=== PATIENT | female | born 1985 | race Caucasian/White ===

== ENCOUNTER 2016-06-27 05:46 | Emergency (ER) | payer OTHER ==
[2016-06-27] MEDS ORDERED: CLINDAMYCIN HCL 150 MG CAPSULE PO ONE (06:34)
[2016-06-27] MEDS ORDERED: BUPIVACAINE HCL 0.5%-EPI 1:200000 INJ/PF 30 ML VIAL INJ ONE (06:34)
--- NOTE | 2016-06-27 06:38 | ER Document Report ---
ED General - General Chief Complaint: Toothache Stated Complaint: TOOTH PAIN TRAVEL OUTSIDE OF THE [place] IN LAST 30 DAYS: No - HPI Patient complains to provider of: dental pain Notes: Patient states she checked her tooth was not bleeding can be. Patient states she is start Motrin Tylenol with no pain relief. Patient denies any other injuries. Patient denies any other medical problems. Patient states she is allergic to penicillin. Patient states she does have a dentist and plans on following up very closely. - Related Data Allergies/Adverse Reactions: Penicillins Allergy (Verified 06/27/16 05:50) Past Medical History - General Last Menstrual Period: na - Social History Smoking Status: Never Smoker Cigarette use (# per day): No Chew tobacco use (# tins/day): No Frequency of alcohol use: Rare Drug Abuse: None Family History: Reviewed & Not Pertinent Renal/ Medical History: Denies: Hx Peritoneal Dialysis Past Surgical History: Reports: Hx Section - X2, Hx Cholecystectomy, Hx Hysterectomy, Hx Orthopedic Surgery - Left Knee - Immunizations Hx Diphtheria, Pertussis, Tetanus Vaccination: Yes Review of Systems - Review of Systems Constitutional: No symptoms reported EENT: Other - Dental pain Cardiovascular: No symptoms reported Respiratory: No symptoms reported Gastrointestinal: No symptoms reported Genitourinary: No symptoms reported Female Genitourinary: No symptoms reported Musculoskeletal: No symptoms reported Skin: No symptoms reported Hematologic/Lymphatic: No symptoms reported Neurological/Psychological: No symptoms reported -: Yes All other systems reviewed and negative Physical Exam - Vital signs Vitals: Temp Pulse Resp BP Pulse Ox 98.6 F 89 18 137/85 H 99 06/27/16 05:51 06/27/16 05:51 06/27/16 05:51 06/27/16 05:51 06/27/16 05:51 Interpretation: Normal - General General appearance: Appears well, Alert - HEENT Head: Normocephalic, Atraumatic Eyes: Normal Conjunctiva: Normal Cornea: Normal Extraocular movements intact: Yes Eyelashes: Normal Pupils: PERRL Teeth diagram: 1 - Patient with slight dental injury Agosto type I of tooth #30 - Respiratory Respiratory status: No respiratory distress Chest status: Nontender Breath sounds: Normal Chest palpation: Normal - Cardiovascular Rhythm: Regular Heart sounds: Normal auscultation Murmur: No - Abdominal Inspection: Normal Distension: No distension Bowel sounds: Normal Tenderness: Nontender Organomegaly: No organomegaly - Back Back: Normal, Nontender - Extremities General upper extremity: Normal inspection, Nontender, Normal color, Normal ROM , Normal temperature General lower extremity: Normal inspection, Nontender, Normal color, Normal ROM , Normal temperature, Normal weight bearing. No: Raman's sign - Neurological Neuro grossly intact: Yes Cognition: Normal Orientation: AAOx4 Patrizia Coma Scale Eye Opening: Spontaneous Patrizia Coma Scale Verbal: Oriented [place] Coma Scale Motor: Obeys Commands Patrizia Coma Scale Total: 15 Speech: Normal Motor strength normal: LUE, RUE, LLE, RLE Sensory: Normal - Psychological Associated symptoms: Normal affect, Normal mood - Skin Skin Temperature: Warm Skin Moisture: Dry Skin Color: Normal Course - Re-evaluation Re-evalutation: 06/27/16 06:52 Dental block was performed. Patient received good analgesia. Will treat patient with clindamycin Motrin Tylenol and Ultram. Patient's follow-up with dentist. - Vital Signs Vital signs: Temp Pulse Resp BP Pulse Ox 97.8 F 72 18 135/82 H 99 06/27/16 07:14 06/27/16 07:14 06/27/16 07:14 06/27/16 07:14 06/27/16 07:14 Procedures - Additional Procedures dental block Notes: 06/27/16 06:52 Patient's underwent a dental block. Inferior alveolar nerve block was performed using 0.5% Sensorcaine with epi. Approximately 2 mL of medication were instilled for block. Patient tolerated well no complications. Discharge - Discharge Clinical Impression: Pain, dental Fractured tooth Qualifiers: Encounter type: initial encounter Fracture type: closed Qualified Code(s): S02.5XXA - Fracture of tooth (traumatic), initial encounter for closed fracture Condition: Good Disposition: HOME, SELF-CARE Instructions: [facility], Clindamycin ([facility]), Oral Narcotic Medication ([facility]), Toothache ([facility]) Additional Instructions: Take medication as prescribed. Please follow-up with your dentist for further evaluation of her tooth. Return to the ER as needed Prescriptions: Ibuprofen [Motrin 600 mg Tablet] 600 mg PO Q8HP PRN #90 tablet PRN Reason: Clindamycin HCl [Cleocin 150 mg Capsule] 150 mg PO Q6 7 Days Tramadol HCl [Ultram 50 mg Tablet] 50 mg PO ASDIR PRN #20 tablet PRN Reason: Forms: Return to Work
[2016-06-27 07:15] VITALS: BP 135/82
== END 2016-06-27 07:15 | disposition home or self-care (01) ==
LOC: ER 05:46
PROC: 3E0T3BZ Introduction of Anesthetic Agent into Peripheral Nerves and Plexi, Percutaneous Approach (ICD-10-PCS; principal; 2016-06-27)
DX: S02.5XXA Fracture of tooth (traumatic), initial encounter for closed fracture (principal); X58.XXXA Exposure to other specified factors, initial encounter; K08.89 Other specified disorders of teeth and supporting structures; Z88.0 Allergy status to penicillin
CPT/HCPCS: 99282; 64400; J3490

== ENCOUNTER 2017-01-16 17:40 | Emergency (ER) | payer SELFPAY ==
[2017-01-16] MEDS ORDERED: KETOROLAC TROMETHAMINE INJ/PF 30 MG/1 ML SDV IV ONE (19:30)
[2017-01-16] MEDS ORDERED: NORMAL SALINE 1000 ML 1,000 ML IV ONE (19:30)
--- NOTE | 2017-01-16 19:33 | ER Document Report ---
ED General - General Chief Complaint: Flu Symptoms Stated Complaint: FLU LIKE SYMPTOMS Time Seen by Provider: 01/16/17 19:13 Notes: Patient is a 31-year-old female comes emergency department for chief complaint of feeling weak, fever/chills, body aches, and she also has a non-productive cough and some mild congestion. She states she keeps getting lightheaded spells today, but she denies syncope. She takes no daily medications. Past medical history of hysterectomy and cholecystectomy. TRAVEL OUTSIDE OF THE [place] IN LAST 30 DAYS: No - Related Data Allergies/Adverse Reactions: Penicillins Allergy (Verified 06/27/16 05:50) Past Medical History - General Information source: Patient - Social History Smoking Status: Never Smoker Frequency of alcohol use: None Drug Abuse: None Lives with: Family Family History: Reviewed & Not Pertinent - Medical History Medical History: Negative Renal/ Medical History: Denies: Hx Peritoneal Dialysis Past Surgical History: Reports: Hx Section - X2, Hx Cholecystectomy, Hx Hysterectomy, Hx Orthopedic Surgery - Left Knee - Immunizations Hx Diphtheria, Pertussis, Tetanus Vaccination: Yes Review of Systems - Review of Systems Constitutional: See HPI EENT: See HPI Cardiovascular: See HPI Respiratory: See HPI Gastrointestinal: No symptoms reported Genitourinary: No symptoms reported Female Genitourinary: No symptoms reported Musculoskeletal: See HPI Skin: No symptoms reported Hematologic/Lymphatic: No symptoms reported Neurological/Psychological: No symptoms reported Physical Exam - Vital signs Vitals: Temp Pulse Resp BP Pulse Ox 99 F 112 H 16 153/83 H 96 01/16/17 18:05 01/16/17 18:05 01/16/17 18:05 01/16/17 18:05 01/16/17 18:05 Interpretation: Normal - General General appearance: Appears well, Alert In distress: None - HEENT Head: Normocephalic, Atraumatic Eyes: Normal Conjunctiva: Normal Extraocular movements intact: Yes Eyelashes: Normal Pupils: PERRL Ears: Normal External canal: Normal Tympanic membrane: Normal Sinus: Normal Nasal: Clear rhinorrhea Mouth/Lips: Normal Mucous membranes: Normal Pharynx: Normal Neck: Normal - Respiratory Respiratory status: No respiratory distress. No: Respiratory distress, Labored , Tachypnea Chest status: Nontender Breath sounds: Nonproductive cough - Intermittent mild nonproductive cough. No : Decreased air movement, Wheezing Chest palpation: Normal - Cardiovascular Rhythm: Regular, Tachycardia Heart sounds: Normal auscultation, S1 appreciated, S2 appreciated Murmur: No - Abdominal Inspection: Normal Distension: No distension Bowel sounds: Normal Tenderness: Nontender. No: Tender, Guarding Organomegaly: No organomegaly - Back Back: Normal, Nontender. 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 Workup performed because of her complaints of feeling abnormally weak however this was unremarkable including CBC, chemistry, chest x-ray. Influenza negative. Suspect patient has a virus, no evidence of other abnormality, no nuchal rigidity, headache, clear lungs, soft abdomen. Initially mildly tachycardic, resolved after IV fluids, symptoms of discomfort resolved after Toradol. Discussed with patient, she requests time off from work but otherwise will be treated symptomatically, discussed follow-up and return precautions, patient states understanding and agreement. - Vital Signs Vital signs: Temp Pulse Resp BP Pulse Ox 98.3 F 75 18 129/85 H 97 01/16/17 21:56 01/16/17 21:56 01/16/17 21:56 01/16/17 21:56 01/16/17 21:56 - Laboratory Result Diagrams: 01/16/17 19:45 01/16/17 20:30 Laboratory results interpreted by me: 01/16/17 20:30 Total Protein 5.9 L Discharge - Discharge Clinical Impression: Weakness, Body aches, Cough, Sinus congestion Condition: Stable Disposition: HOME, SELF-CARE Additional Instructions: Your chest x-ray and workup did not show any concerning abnormalities. He would likely have a viral illness which should resolve with time. Rest, drink plenty of fluids, take Tylenol or ibuprofen for fever and body aches, take Tessalon as prescribed if needed for cough, take Kathrine to help reduce drainage and congestion. Follow-up with primary care. Return to the emergency department for any concerning or worsening symptoms including difficulty breathing, vomiting, or any other concerning symptoms. Prescriptions: Benzonatate [Tessalon Perle 100 mg Capsule] 100 mg PO Q8HP PRN #20 cap PRN Reason: Fexofenadine HCl [Kathrine Allergy] 180 mg PO DAILY #30 tablet Forms: Return to Work
--- NOTE | 2017-01-16 20:14 | RADIOLOGY REPORT (SQ) ---
EXAM DESCRIPTION: CHEST PA/LAT COMPLETED DATE/TIME: 01/16/2017 8:02 pm REASON FOR STUDY: fevers, cough COMPARISON: None. EXAM PARAMETERS: NUMBER OF VIEWS: two views TECHNIQUE: Digital Frontal and Lateral radiographic views of the chest acquired. RADIATION DOSE: NA LIMITATIONS: none FINDINGS: LUNGS AND PLEURA: No opacities, masses or pneumothorax. No pleural effusion. MEDIASTINUM AND HILAR STRUCTURES: No masses or contour abnormalities. HEART AND VASCULAR STRUCTURES: Heart normal size. No evidence for failure. BONES: No acute findings. HARDWARE: None in the chest. OTHER: No other significant finding. IMPRESSION: NO SIGNIFICANT RADIOGRAPHIC FINDING IN THE CHEST. TECHNICAL DOCUMENTATION: JOB ID: [id number] [employer]- All Rights Reserved
[2017-01-16 20:15] LABS: ABSOLUTE BASOPHILS # (AUTO) 0.1 10^3/uL (0.0-0.2); ABSOLUTE EOSINOPHILS # (AUTO) 0.1 10^3/uL (0.0-0.6); ABSOLUTE LYMPHOCYTES (AUTO) 1.8 10^3/uL (0.5-4.7); ABSOLUTE MONOCYTES (AUTO) 0.5 10^3/uL (0.1-1.4); ABSOLUTE NEUT (AUTO) 6.4 10^3/uL (1.7-8.2); BASOPHILS % (AUTO) 0.6 % (0-2); HEMOGLOBIN 13.5 g/dL (12.0-15.5); HGB HCT DIFFERENCE 1.5; MEAN CORPUSCULAR HEMOGLOBIN 31.1 pg (27.0-33.4); MEAN CORPUSCULAR HGB CONC 34.6 g/dL (32.0-36.0); MEAN CORPUSCULAR VOLUME 90 fl (80-97); MONOCYTES % (AUTO) 5.9 % (3-13); RED BLOOD COUNT 4.35 10^6/uL (3.72-5.28); RED CELL DISTRIBUTION WIDTH 13.4 % (11.5-14.0); SEGMENTED NEUTROPHILS % (AUTO) 72.5 % (42-78); WHITE BLOOD COUNT 8.9 10^3/uL (4.0-10.5)
[2017-01-16 21:08] LABS: ALANINE AMINOTRANSFERASE 38 U/L (9-52); ALBUMIN 3.6 g/dL (3.5-5.0); ALKALINE PHOSPHATASE 52 U/L (38-126); ANION GAP 11 (5-19); ASPARTATE AMINO TRANSFERASE 20 U/L (14-36); BILIRUBIN,DIRECT 0.3 mg/dL (0.0-0.4); BILIRUBIN,TOTAL 1.3 mg/dL (0.2-1.3); BLOOD UREA NITROGEN 12 mg/dL (7-20); CALCIUM 8.5 mg/dL (8.4-10.2); CARBON DIOXIDE 24 mmol/L (22-30); CHLORIDE 107 mmol/L (98-107); CREATININE RESULT 0.72 mg/dL (0.52-1.25); GLUCOSE 84 mg/dL (75-110); POTASSIUM 3.9 mmol/L (3.6-5.0); SODIUM 142.1 mmol/L (137-145); TOTAL PROTEIN 5.9 g/dL (6.3-8.2)
[2017-01-16 21:58] VITALS: BP 129/85
== END 2017-01-16 21:57 | disposition home or self-care (01) ==
LOC: ER 17:40
DX: R53.1 Weakness (principal); M79.1 Myalgia; R05 Cough; R09.81 Nasal congestion
CPT/HCPCS: 99283; 96361; 96374; 36415; 85025; 80053; 87804; 71020; J1885; J7030

== ENCOUNTER 2018-01-16 17:41 | Emergency (ER) | payer SELFPAY ==
[2018-01-16] MEDS ORDERED: IBUPROFEN 800 MG TABLET PO ONE (18:56)
--- NOTE | 2018-01-16 19:28 | ER Document Report ---
HPI - HPI Patient complains to provider of: left knee pain Time Seen by Provider: 01/16/18 18:46 Pain Level: 3 Context: Patient is a 32-year-old female presenting to the emergency department complaining of left knee pain. Patient states she is getting into the bathtub when she slipped and fell hitting the anterior aspect of her left knee on the top. Denies hitting her head, neck, back or pain in any. States she has continued pain in the left knee throughout the day despite taking over-the- counter NSAIDs. States she presents to the emergency room for x-rays. Past medical history Past medical history: None Medications: None Allergies: Penicillin Surgical history: 2 sections, partial hysterectomy, cholecystectomy Patient denies cigarette smoking, denies illicit drug use, denies EtOH use. - CONSTITUTIONAL Constitutional: DENIES: Fever, Chills - EENT EENT: DENIES: Sore Throat, Ear Pain, Eye problems - NEURO Neurology: DENIES: Headache, Weakness, Vision blurred, Dizzinesss / Vertigo - CARDIOVASCULAR Cardiovascular: DENIES: Chest pain - RESPIRATORY Respiratory: DENIES: Trouble Breathing, Coughing - GASTROINTESTINAL Gastrointestinal: DENIES: Abdominal Pain, Black / Bloody Stools - URINARY Urinary: DENIES: Dysuria, Urgency, Frequency - REPRODUCTIVE Reproductive: DENIES: : - MUSCULOSKELETAL Musculoskeletal: REPORTS: Extremity pain - left knee Past Medical History - General Information source: Patient - Social History Smoking Status: Never Smoker Chew tobacco use (# tins/day): No Frequency of alcohol use: None Drug Abuse: None Family History: Reviewed & Not Pertinent Patient has suicidal ideation: No Patient has homicidal ideation: No Renal/ Medical History: Denies: Hx Peritoneal Dialysis Past Surgical History: Reports: Hx Section - X2, Hx Cholecystectomy, Hx Hysterectomy, Hx Orthopedic Surgery - Left Knee - Immunizations Hx Diphtheria, Pertussis, Tetanus Vaccination: Yes Vertical Provider Document - CONSTITUTIONAL Agree With Documented VS: Yes Notes: GENERAL: Alert, interacts well. No acute distress. HEAD: Normocephalic, atraumatic. EYES: Pupils equal, round, and reactive to light. Extraocular movements intact. ENT: Oral mucosa moist, tongue midline. NECK: Full range of motion. Supple. Trachea midline. LUNGS: Clear to auscultation bilaterally, no wheezes, rales, or rhonchi. No respiratory distress. HEART: Regular rate and rhythm. No murmur ABDOMEN: Soft, non-tender. Non-distended. Bowel sounds present in all 4 quadrants. EXTREMITIES: Moves all 4 extremities spontaneously. normal radial and dorsalis pedis pulses bilaterally. No cyanosis. Swelling noted left anterior knee, no ecchymosis or erythema noted. Negative anterior draw, not able to establish valgus or varus due to pain. PMS + distal left extremity. BACK: no cervical, thoracic, lumbar midline tenderness. No saddle anesthesia, normal distal neurovascular exam. NEUROLOGICAL: Alert and oriented x3. Normal speech. cranial nerves II through XII grossly intact. PSYCH: Normal affect, normal mood. SKIN: Warm, dry, normal turgor. - INFECTION CONTROL TRAVEL OUTSIDE OF THE [place] IN LAST 30 DAYS: No Course - Re-evaluation Re-evalutation: 01/16/18 20:28 X-ray revealed no signs of fracture. Discussed at length with patient at bedside need to follow-up with orthopedics and primary care provider. Knee immobilizer and crutches will be given. 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 - Vital Signs Vital signs: Temp Pulse Resp BP Pulse Ox 98.8 F 88 20 149/91 H 97 01/16/18 17:55 01/16/18 17:55 01/16/18 17:55 01/16/18 17:55 01/16/18 17:55 Discharge - Discharge Clinical Impression: Knee injury Qualifiers: Encounter type: initial encounter Laterality: left Qualified Code(s): S89.92XA - Unspecified injury of left lower leg, initial encounter Condition: Stable Disposition: HOME, SELF-CARE Instructions: Use of Crutches ([facility]), Ice & Elevation ([facility]), Knee Immobilizing Splint ([facility]), Sprained Knee ([facility]) Additional Instructions: As you we discussed you have been seen and treated in the emergency room for knee pain. Please use knee immobilizer and crutches as needed. Please follow- up with orthopedics at your earliest convenience. Please make an appointment with your primary care provider. Please return to the emergency room for any other concerning symptom Referrals: ROSIE WOODWARD FNP-C [Primary Care Provider] - Follow up as needed NEMO BILLS MD [ACTIVE STAFF] - Follow up as needed
--- NOTE | 2018-01-16 20:22 | RADIOLOGY REPORT (SQ) ---
EXAM DESCRIPTION: KNEE LEFT 4 VIEW COMPLETED DATE/TIME: 01/16/2018 8:12 pm REASON FOR STUDY: fall hysterectomy. COMPARISON: None. NUMBER OF VIEWS: Four views. TECHNIQUE: AP, lateral, and both oblique radiographic images acquired of the left knee. LIMITATIONS: None. FINDINGS: MINERALIZATION: Normal. BONES: No acute fracture or dislocation. No worrisome bone lesions. JOINT: No effusion. SOFT TISSUES: No soft tissue swelling. No radio-opaque foreign body. OTHER: No other significant finding. IMPRESSION: NEGATIVE STUDY OF THE LEFT KNEE. NO RADIOGRAPHIC EVIDENCE OF ACUTE INJURY. TECHNICAL DOCUMENTATION: JOB ID: [id number] [employer]- All Rights Reserved Reading location - IP/workstation name: [email or web address]
[2018-01-16 21:05] VITALS: BP 134/79
== END 2018-01-16 21:05 | disposition home or self-care (01) ==
LOC: ER 17:41
DX: S89.92XA Unspecified injury of left lower leg, initial encounter (principal); W18.2XXA Fall in (into) shower or empty bathtub, initial encounter; Y92.002 Bathroom of unspecified non-institutional (private) residence as the place of occurrence of the external cause; Z88.0 Allergy status to penicillin; Z90.49 Acquired absence of other specified parts of digestive tract; Z90.710 Acquired absence of both cervix and uterus
CPT/HCPCS: 99283; 73564; L1830

== ENCOUNTER 2018-10-06 00:58 | Emergency (ER) | payer SELFPAY ==
[2018-10-06] MEDS ORDERED: NORMAL SALINE 1000 ML 1,000 ML IV ONE (02:12)
[2018-10-06] MEDS ORDERED: KETOROLAC TROMETHAMINE INJ/PF 30 MG/1 ML SDV IV ONE (02:12)
[2018-10-06 02:43] LABS: APPEARANCE,URINE SLIGHTLY-CLOUDY; BILIRUBIN,URINE NEGATIVE (NEGATIVE); COLOR,URINE YELLOW; GLUCOSE, URINE NEGATIVE (NEGATIVE); KETONES,URINE NEGATIVE (NEGATIVE); LEUKOCYTE ESTERASE,URINE NEGATIVE (NEGATIVE); NITRITE,URINE NEGATIVE (NEGATIVE); PROTEIN,URINE NEGATIVE (NEGATIVE); URINE SPECIFIC GRAVITY 1.013; UROBILINOGEN,URINE NEGATIVE mg/dL (<2.0)
[2018-10-06 02:44] LABS: ABSOLUTE EOSINOPHILS # (AUTO) 0.1 10^3/uL (0.0-0.6); ABSOLUTE LYMPHOCYTES (AUTO) 1.3 10^3/uL (0.5-4.7); ABSOLUTE MONOCYTES (AUTO) 0.8 10^3/uL (0.1-1.4); ABSOLUTE NEUT (AUTO) 4.8 10^3/uL (1.7-8.2); BASOPHILS % (AUTO) 0.6 % (0-2); EOSINOPHILS % (AUTO) 1.5 % (0-6); HEMATOCRIT 38.1 % (36.0-47.0); LYMPHOCYTES % (AUTO) 18.8 % (13-45); MEAN CORPUSCULAR HEMOGLOBIN 31.2 pg (27.0-33.4); MEAN CORPUSCULAR HGB CONC 34.3 g/dL (32.0-36.0); MEAN CORPUSCULAR VOLUME 91 fl (80-97); MONOCYTES % (AUTO) 11.2 % (3-13); PLATELET COUNT 173 10^3/uL (150-450); RED BLOOD COUNT 4.19 10^6/uL (3.72-5.28); RED CELL DISTRIBUTION WIDTH 13.2 % (11.5-14.0); SEGMENTED NEUTROPHILS % (AUTO) 67.9 % (42-78); TOTAL CELLS COUNTED % (AUTO) 100 %; WHITE BLOOD COUNT 7.1 10^3/uL (4.0-10.5)
[2018-10-06 02:54] LABS: ALKALINE PHOSPHATASE 64 U/L (38-126); ANION GAP 9 (5-19); ASPARTATE AMINO TRANSFERASE 21 U/L (14-36); BILIRUBIN,DIRECT 0.2 mg/dL (0.0-0.4); BILIRUBIN,TOTAL 0.4 mg/dL (0.2-1.3); BLOOD UREA NITROGEN 14 mg/dL (7-20); CALCIUM 9.4 mg/dL (8.4-10.2); CARBON DIOXIDE 25 mmol/L (22-30); CHLORIDE 105 mmol/L (98-107); GLUCOSE 97 mg/dL (75-110); POTASSIUM 4.1 mmol/L (3.6-5.0); TOTAL PROTEIN 6.6 g/dL (6.3-8.2)
--- NOTE | 2018-10-06 03:57 | RADIOLOGY REPORT (SQ) ---
EXAM DESCRIPTION: CT ABDOMEN PELVIS WITHOUT IV CONTRAST COMPLETED DATE/TME: 10/06/2018 03:00 CLINICAL HISTORY: 33 years, Female, Left flank pain with hematuria Comparison: None TECHNIQUE: Contiguous axial CT images of the abdomen and pelvis were obtained. Sagittal and coronal reformats were provided . This exam was performed according to our departmental dose-optimization program, which includes automated exposure control, adjustment of the mA and/or kV according to patient size and/or use of iterative reconstruction technique. FINDINGS: Lung bases: Clear. Liver:Unremarkable. No focal liver lesion. Gallbladder:Cholecystectomy clips seen in gallbladder fossa. Spleen:Unremarkable Pancreas: Pancreas is unremarkable. Adrenal glands:Within normal limits. Kidneys/ureters: Mild left hydronephrosis and hydroureter secondary to a 2 mm calculus within the ureterovesical junction. Stomach/small bowel/colon: Stomach is unremarkable. Small bowel is unremarkable. Colon is unremarkable. Appendix: No evidence of appendicitis. Peritoneum: Trace amount of pelvic fluid. Vascular structures: within normal limits Lymph nodes: No abnormal lymph nodes. Bladder:Unremarkable. Pelvic organs: The patient has had a hysterectomy. The left ovary appears enlarged measuring 4.5 x 2.5 cm. The right ovary is mildly prominent measuring 3.6 x 2 cm. Bones: No acute osseous abnormality. Soft tissues: Unremarkable.. IMPRESSION: Obstructive calculus in the left ureterovesical junction measuring approximately 2 mm. Both ovaries appear mildly enlarged. No discrete masses. Recommend comparison with previous studies if available versus nonemergent pelvic ultrasound.
--- NOTE | 2018-10-06 04:02 | ER Document Report ---
Entered by BRITNEY CAICEDO SCRIBE 10/06/18 0215 Acting as scribe for:CHEYENNE PERRIN MD ED General - General Chief Complaint: Abdominal Pain Stated Complaint: LEFT SIDED PAIN Time Seen by Provider: 10/06/18 02:04 Primary Care Provider: ROSIE WOODWARD FNP-C [Primary Care Provider] - Follow up as needed Notes: Patient is a 32-year-old female presenting to the emergency department compla ining of abdominal pain. Patient states that the pain began about 2 hours ago. Patient states that the pain radiates down her back. Patient states that it feels like "100 needles". When she tries to urinate. Patient states she has been having extreme dysuria, burning when she pees. Patient states that she attempted to alleviate it with cranberry juice and plenty of fluids, and had no relief. TRAVEL OUTSIDE OF THE [place] IN LAST 30 DAYS: No - Related Data Allergies/Adverse Reactions: Penicillins Allergy (Verified 10/06/18 01:02) Past Medical History - General Information source: Patient - Social History Smoking Status: Never Smoker Cigarette use (# per day): No Chew tobacco use (# tins/day): No Frequency of alcohol use: None Drug Abuse: None Family History: Reviewed & Not Pertinent Renal/ Medical History: Denies: Hx Peritoneal Dialysis Past Surgical History: Reports: Hx Section - X2, Hx Cholecystectomy, Hx Hysterectomy, Hx Orthopedic Surgery - Left Knee - Immunizations Hx Diphtheria, Pertussis, Tetanus Vaccination: Yes Review of Systems - Review of Systems Constitutional: No symptoms reported EENT: No symptoms reported Cardiovascular: No symptoms reported Respiratory: No symptoms reported Gastrointestinal: See HPI, Abdominal pain Genitourinary: See HPI, Burning, Dysuria Female Genitourinary: No symptoms reported Musculoskeletal: No symptoms reported Skin: No symptoms reported Hematologic/Lymphatic: No symptoms reported Neurological/Psychological: No symptoms reported -: Yes All other systems reviewed and negative Physical Exam - Vital signs Vitals: Temp Pulse Resp BP Pulse Ox 98.6 F 85 24 H 139/83 H 97 10/06/18 01:18 10/06/18 01:18 10/06/18 01:18 10/06/18 01:18 10/06/18 01:18 - Notes Notes: Physical Exam: General: Alert, in distress. HEENT: Normocephalic. Atraumatic. PERRL. Extraocular movements intact. Oropharynx clear. Neck: Supple. Non-tender. Back: Lumbar musculature tenderness to palpation. Percussion tenderness present in the left flank, not in the right. Respiratory: No respiratory distress. Clear and equal breath sounds bilaterally. Cardiovascular: Regular rate and rhythm. Abdominal: Normal Inspection. Non-tender. No distension. Normal Bowel Sounds. Back: Non-tender. No deformity or step off. Extremities: Moves all four extremities. Upper extremities: Normal inspection. Normal ROM. Lower extremities: Normal inspection. No edema. Normal ROM. Neurological: Normal cognition. AAOx4. Normal speech. Psychological: Normal affect. Normal Mood. Skin: Warm. Dry. Normal color. Course - Vital Signs Vital signs: Temp Pulse Resp BP Pulse Ox 98.6 F 85 24 H 139/83 H 97 10/06/18 01:18 10/06/18 01:18 10/06/18 01:18 10/06/18 01:18 10/06/18 01:18 - Laboratory Result Diagrams: 10/06/18 02:33 10/06/18 02:33 Laboratory results interpreted by me: 10/06/18 02:15 Urine Blood LARGE H - Diagnostic Test Radiology reviewed: Image reviewed, Reports reviewed - CT scan shows a nonobstructing 2 mm stone at the left UVJ. Discharge - Discharge Clinical Impression: Calculus of ureterovesical junction (UVJ) Condition: Stable Disposition: HOME, SELF-CARE Additional Instructions: Kidney Stone You are passing a kidney stone. These stones are usually due to increased calcium and oxalate concentrations in your urine. Stones within the kidney itself are not painful. The pain occurs as the stone leaves the kidney to pass down the long tube, called the ureter, leading to the bladder. If the stone is small, it will usually pass by itself. Most patients can pass the stone at home. You will usually receive medications for pain, nausea or vomiting, and sometimes a medication to assist in passing the kidney stone. However, if the pain is very severe or if vomiting prevents you from taking oral pain medications, you may need to return for further treatment. Drink three or four quarts of fluids per day. You will be given pain medication (if needed) and urine strainers. Strain all your urine to see if the stone passes. If your doctor has asked you to bring the stone in for analysis, return with the stone once it has passed. Return if pain or vomiting become severe, if you develop a high fever, if you are unable to pass your urine, or if other unusual symptoms occur. Drink plenty of fluids. Strain your urine. Take ibuprofen 800 mg every 8 hours. Take the pain medication as prescribed if needed. Start taking the Flomax tomorrow if the stone has not passed yet. Follow-up with your primary care provider if not improving. RETURN TO THE EMERGENCY ROOM IF ANY NEW OR WORSENING SYMPTOMS. Prescriptions: Hydrocodone/Acetaminophen [Hopkins 5-325 mg Tablet] 1 tab PO Q4 PRN #12 tablet PRN Reason: Tamsulosin HCl [Flomax 0.4 mg Cap.sr] 0.4 mg PO DAILY #5 cap.sr.24h Referrals: ROSIE WOODWARD, CURRICULUM DEVELOPMENT MANAGER-C [Primary Care Provider] - Follow up as needed Scribe Attestation: 10/06/18 03:01 I personally performed the services described in the documentation, reviewed and edited the documentation which was dictated to the scribe in my presence, and it accurately records my words and actions. I personally performed the services described in the documentation, reviewed and edited the documentation which was dictated to the scribe in my presence, and it accurately records my words and actions.
[2018-10-06] MEDS ORDERED: TAMSULOSIN HCL 0.4 MG CAP.SR.24H PO ONE (04:04)
[2018-10-06] MEDS ORDERED: HYDROCODONE/ACETAMINOPHEN 5-325 MG (6 TAB/ER DISP) PO PRN (04:11)
[2018-10-06 04:21] VITALS: BP 134/78
== END 2018-10-06 04:22 | disposition home or self-care (01) ==
LOC: ER 00:58
DX: N20.1 Calculus of ureter (principal); R10.9 Unspecified abdominal pain; R30.0 Dysuria; Z90.49 Acquired absence of other specified parts of digestive tract; Z90.710 Acquired absence of both cervix and uterus
CPT/HCPCS: 36415; 85025; 80053; 81001; 74176; J1885; J7030; 96361; 96374; 99284

== ENCOUNTER 2019-02-07 16:37 | Emergency (ER) | payer SELFPAY ==
--- NOTE | 2019-02-07 17:26 | ER Document Report ---
ED Medical Screen (RME) - General Chief Complaint: Toothache Stated Complaint: TOOTH PAIN, FACIAL SWELLING Time Seen by Provider: 02/07/19 17:24 Primary Care Provider: ROSIE WOODWARD FNP-C [Primary Care Provider] - Follow up as needed Mode of Arrival: Ambulatory Information source: Patient Notes: Patient presents with a dental infection to the left upper jaw. Patient states she has been taking clindamycin for dental pain for the past 3 weeks. Pain started to worsen 4 days ago when she developed facial swelling today. Patient with significant swelling. I have greeted and performed a rapid initial assessment of this patient. A comprehensive ED assessment and evaluation of the patient, analysis of test results and completion of the medical decision making process will be conducted by additional ED providers. TRAVEL OUTSIDE OF THE [place] IN LAST 30 DAYS: Yes - Related Data Allergies/Adverse Reactions: Penicillins Allergy (Verified 10/06/18 01:02) Home Medications: Clindamycin Past Medical History - Social History Chew tobacco use (# tins/day): No Frequency of alcohol use: None Drug Abuse: None Renal/ Medical History: Denies: Hx Peritoneal Dialysis Past Surgical History: Reports: Hx Section - X2, Hx Cholecystectomy, Hx Hysterectomy, Hx Orthopedic Surgery - Left Knee - Immunizations Hx Diphtheria, Pertussis, Tetanus Vaccination: Yes Physical Exam - Vital signs Vitals: Temp Pulse Resp BP Pulse Ox 98.2 F 86 18 143/78 H 100 02/07/19 16:42 02/07/19 16:42 02/07/19 16:42 02/07/19 16:42 02/07/19 16:42 - HEENT Mouth/Lips: Caries Teeth diagram: 1 - Tenderness, decay, gingival swelling Course - Vital Signs Vital signs: Temp Pulse Resp BP Pulse Ox 98.2 F 86 18 143/78 H 100 02/07/19 17:21 02/07/19 16:42 02/07/19 17:21 02/07/19 16:42 02/07/19 17:21 Doctor's Discharge - Discharge Referrals: CRISSY,ROSIE B, [employer] FOREMAN-C [Primary Care Provider] - Follow up as needed
[2019-02-07 18:22] LABS: ABSOLUTE EOSINOPHILS # (AUTO) 0.1 10^3/uL (0.0-0.6); ABSOLUTE LYMPHOCYTES (AUTO) 1.4 10^3/uL (0.5-4.7); ABSOLUTE MONOCYTES (AUTO) 0.6 10^3/uL (0.1-1.4); ABSOLUTE NEUT (AUTO) 6.6 10^3/uL (1.7-8.2); BASOPHILS % (AUTO) 0.3 % (0-2); EOSINOPHILS % (AUTO) 0.7 % (0-6); HEMATOCRIT 36.1 % (36.0-47.0); HEMOGLOBIN 12.7 g/dL (12.0-15.5); LYMPHOCYTES % (AUTO) 15.8 % (13-45); MEAN CORPUSCULAR HEMOGLOBIN 31.5 pg (27.0-33.4); MEAN CORPUSCULAR HGB CONC 35.1 g/dL (32.0-36.0); MEAN CORPUSCULAR VOLUME 90 fl (80-97); MONOCYTES % (AUTO) 7.2 % (3-13); PLATELET COUNT 208 10^3/uL (150-450); RED BLOOD COUNT 4.02 10^6/uL (3.72-5.28); RED CELL DISTRIBUTION WIDTH 12.7 % (11.5-14.0); TOTAL CELLS COUNTED % (AUTO) 100 %; WHITE BLOOD COUNT 8.7 10^3/uL (4.0-10.5)
[2019-02-07 18:40] LABS: ALBUMIN 4.2 g/dL (3.5-5.0); ALKALINE PHOSPHATASE 85 U/L (38-126); ANION GAP 10 (5-19); ASPARTATE AMINO TRANSFERASE 30 U/L (14-36); BILIRUBIN,DIRECT 0.2 mg/dL (0.0-0.4); BILIRUBIN,TOTAL 1.2 mg/dL (0.2-1.3); BLOOD UREA NITROGEN 11 mg/dL (7-20); CALCIUM 9.1 mg/dL (8.4-10.2); CARBON DIOXIDE 28 mmol/L (22-30); CHLORIDE 104 mmol/L (98-107); GLUCOSE 88 mg/dL (75-110); POTASSIUM 3.8 mmol/L (3.6-5.0); TOTAL PROTEIN 7.2 g/dL (6.3-8.2)
[2019-02-07] MEDS ORDERED: METRONIDAZOLE 500 MG/NS RTU 500 MG/100 ML RTUPB IV ONE (19:42)
[2019-02-07] MEDS ORDERED: CEFTRIAXONE 2 GM/D5W RTU 2 GM/50 ML RTUPB IV ONE (19:42)
--- NOTE | 2019-02-07 23:26 | ER Document Report ---
ED General - General Chief Complaint: Toothache Stated Complaint: TOOTH PAIN, FACIAL SWELLING Time Seen by Provider: 02/07/19 17:24 Primary Care Provider: ROSIE WOODWARD FNP-C [Primary Care Provider] - Follow up as needed Mode of Arrival: Ambulatory TRAVEL OUTSIDE OF THE [place] IN LAST 30 DAYS: Yes - HPI Notes: Patricia Pina is a 33-year-old female presenting with a chief complaint of dental abscess and worsening facial swelling and pressure. Patient has been under care of dentist with multiple teeth with advanced decay and was scheduled to have multiple extractions done this month. Appointment was canceled however because of difficulty with her blood pressure. She was given some clindamycin which she finished yesterday. Over the last 24 to 48 hours she has had increased swelling over the upper left gumline extending into the facial area. Subjective fever. No chills. No vomiting. Patient is being treated for hypertension. No diabetes. - Related Data Allergies/Adverse Reactions: Penicillins Allergy (Verified 10/06/18 01:02) Home Medications: Clindamycin Past Medical History - General Information source: Patient - Social History Smoking Status: Never Smoker Chew tobacco use (# tins/day): No Frequency of alcohol use: None Drug Abuse: None Family History: Reviewed & Not Pertinent Patient has suicidal ideation: No Patient has homicidal ideation: No - Past Medical History Cardiac Medical History: Reports: Hx Hypertension Renal/ Medical History: Denies: Hx Peritoneal Dialysis Past Surgical History: Reports: Hx Section - X2, Hx Cholecystectomy, Hx Hysterectomy, Hx Orthopedic Surgery - Left Knee - Immunizations Hx Diphtheria, Pertussis, Tetanus Vaccination: Yes Review of Systems - Review of Systems Notes: Constitutional: Negative for fever. HENT: Negative for sore throat. Eyes: Negative for visual changes. Cardiovascular: Negative for chest pain. Respiratory: Negative for shortness of breath. Gastrointestinal: Negative for abdominal pain, vomiting or diarrhea. Genitourinary: Negative for dysuria. Musculoskeletal: Negative for back pain. Skin: Negative for rash. Neurological: Negative for headaches, weakness or numbness. 10 point ROS negative except as marked above and in HPI. Physical Exam - Vital signs Vitals: Temp Pulse Resp BP Pulse Ox 98.2 F 86 18 143/78 H 100 02/07/19 16:42 02/07/19 16:42 02/07/19 16:42 02/07/19 16:42 02/07/19 16:42 - Notes Notes: GENERAL: Well-developed well-nourished appearing uncomfortable. SKIN: Good turgor no rashes. HEAD: Moderate swelling left cheek area. Atraumatic. EYES: PERRLA. Conjunctivae and sclerae clear. EARS: CANALS AND TMS CLEAR. NOSE: CLEAR. MOUTH: Moist mucosa. Multiple decayed and missing teeth. Patient has significant swelling of the gum adjacent to left upper first premolar. There is some exquisite tenderness to percussion this area. No trismus. No stridor or edema. No drooling. NECK: Supple. No masses or thyromegaly. No adenopathy. Carotids 2+ without bruits. No JVD. BACK: Symmetrical without tenderness. CHEST: Respirations unlabored. Breath sounds clear and symmetrical. HEART: Regular rhythm. No murmur gallop or rub. ABDOMEN: Soft nontender without masses, organomegaly or rebound. Bowel sounds normally active. No bruits. GENITALIA: Deferred. EXTREMITIES: No edema. No calf tenderness. Cap refill less than 1.5 seconds. Dorsalis pedis and posterior tibial pulses 3+ and symmetrical. NEUROLOGICAL: GCS 15. Alert and oriented x3. Normal gait. Fluent speech. Cranial nerves II through XII intact. Sensorimotor and cerebellar normal. Normal tone. Course - Re-evaluation Re-evalutation: 02/07/19 23:25 Airway stable at this time. Patient has received IV Rocephin and clindamycin. Feeling much better. Stable for further outpatient follow-up with her dental provider. - Vital Signs Vital signs: Temp Pulse Resp BP Pulse Ox 98.2 F 86 18 143/78 H 100 02/07/19 17:21 02/07/19 16:42 02/07/19 17:21 02/07/19 16:42 02/07/19 17:21 - Laboratory Result Diagrams: 02/07/19 18:05 02/07/19 18:05 Discharge - Discharge Clinical Impression: Dental abscess Condition: Stable Disposition: HOME, SELF-CARE Additional Instructions: Dental Infection or Abscess You have an infection, perhaps an abscess (pus formation) of the gum around one of your teeth, which is probably decayed. If there is an abscess, it may drain on its own or it may need to be opened or lanced. Severe swelling or drainage around a tooth usually means a deep dental abscess which usually requires evaluation and treatment by a dentist or oral surgeon. Antibiotics may be prescribed while awaiting dental treatment. If you develop high fever with chills, worsening pain, or increasing swelling in the area, see a dentist or oral surgeon immediately or return to the Emergency Department immediately. Increase oral fluids. Ibuprofen as needed. Rinse mouth hourly while awake with warm salt water solution. Return here for new or worsening symptoms. Take prescribed antibiotic. Follow-up with your dental provider this week. Prescriptions: Metronidazole [Flagyl 500 mg Tablet] 500 mg PO Q6H #40 tablet Referrals: ROSIE WOODWARD, SOCIAL INSURANCE ANALYST-C [Primary Care Provider] - Follow up as needed
[2019-02-07 23:51] VITALS: BP 140/75
== END 2019-02-07 23:49 | disposition home or self-care (01) ==
LOC: ER 16:37
DX: K04.7 Periapical abscess without sinus (principal); K02.9 Dental caries, unspecified; I10 Essential (primary) hypertension; Z88.0 Allergy status to penicillin
CPT/HCPCS: 99283; 96365; 96367; 36415; 87040; 85025; 80053; J3490; J0696